=== PATIENT | male | born 1965 | race Asian ===

== ENCOUNTER 2017-03-10 19:53 | Inpatient (IN) | payer OTHER ==
[~2017-03-10] VITALS: Ht 177.8 cm; Wt 94.2 kg
[2017-03-10 20:38] LABS: BLOOD UREA NITROGEN 12 mg/dL (7-18)
[2017-03-10] MEDS ORDERED: ENALAPRIL 2.5MG TABLET PO SCH (22:00)
[2017-03-10] MEDS ORDERED: GADOBUTROL 10 MMOL/10 ML PFS ONE (22:21)
[2017-03-10] MEDS: HEPARIN 5,000 UNITS/ML, 1ML SQ SCH (23:58)
[2017-03-10 23:59] VITALS: BP 184/118
[2017-03-11] MEDS ORDERED: ONDANSETRON 2MG/ML, 2ML IVPush PRN
[2017-03-11] MEDS ORDERED: POLYETHYLENE GLYCOL 17 GM PACKET PO PRN
[2017-03-11] MEDS ORDERED: BISACODYL 10 MG SUPP PR PRN
[2017-03-11] MEDS ORDERED: ENALAPRILAT 1.25 MG/ML, 2ML IVPush PRN
[2017-03-11] MEDS ORDERED: SODIUM CHLORIDE FLUSH 10ML SYR IVF SCH
[2017-03-11] MEDS ORDERED: ACETAMINOPHEN 325 MG TABLET PO PRN
[2017-03-11] MEDS ORDERED: ONDANSETRON ODT 4 MG PO PRN (00:30)
[2017-03-11 02:00] VITALS: BP 154/93
[2017-03-11] MEDS: HEPARIN 5,000 UNITS/ML, 1ML SQ SCH ×2 (09:05→16:43)
[2017-03-11] MEDS: SENNA/DOCUSATE TABLET PO SCH (09:05)
[2017-03-11 09:11] VITALS: BP 152/96
[2017-03-11 13:30] VITALS: BP 138/92
[2017-03-11 19:29] VITALS: BP 149/98
[2017-03-12] MEDS: HEPARIN 5,000 UNITS/ML, 1ML SQ SCH ×2 (00:12→08:11)
[2017-03-12 01:32] VITALS: BP 149/99
[2017-03-12 07:37] VITALS: BP 169/102
[2017-03-12] MEDS: SENNA/DOCUSATE TABLET PO SCH (08:09)
[2017-03-12 08:11] VITALS: BP 151/103
[2017-03-12] MEDS ORDERED: LISINOPRIL 20 MG TABLET PO SCH (09:00)
[2017-03-12] MEDS ORDERED: AMLODIPINE 2.5 MG TABLET PO SCH (09:00)
[2017-03-12 12:30] VITALS: BP 135/90
[2017-03-12] MEDS ORDERED: LISI-170 PO (12:58)
[2017-03-12 15:19] LABS: RHEUMATOID FACTOR SCREEN NEGATIVE (NEGATIVE)
== END 2017-03-12 14:35 | disposition home or self-care (01) | DRG 123 ==
LOC: ED 21:39 → EDIP 21:44 → 4NOR 22:45 → DCLOUNGE 03-12 14:30
PROVIDERS: ADMIT Internal Medicine; ATTEND Internal Medicine
DX: H53.2 Diplopia (principal); S04.10XA Injury of oculomotor nerve, unspecified side, initial encounter; I10 Essential (primary) hypertension; H05.20 Unspecified exophthalmos; E04.2 Nontoxic multinodular goiter; G83.9 Paralytic syndrome, unspecified; Z82.49 Family history of ischemic heart disease and other diseases of the circulatory system; Z83.3 Family history of diabetes mellitus
CPT/HCPCS: 36415; 70450; 70480; 70544; 70553; 76536; 80048; 84436; 84439; 84443; 84445; 84481; 85025; 85651; 86038; 86140; 86376; 86430; 93005; 99285; A9585; J1644